=== PATIENT | female | born 1985 | race American Indian/Alaskan Native ===

== ENCOUNTER 2017-09-09 15:11 | Emergency (ER) | payer SELFPAY ==
[2017-09-09] MEDS ORDERED: ZOFRAN ODT PO ONE (19:07)
--- NOTE | 2017-09-09 19:19 | Emergency Department Report ---
ED Female HPI - General Chief complaint: Abdominal Pain Stated complaint: FLU LIKE SYMPTOMS Time Seen by Provider: 09/09/17 19:11 Source: patient Mode of arrival: Ambulatory Limitations: No Limitations - History of Present Illness Initial comments: 32F past medical history c/o slight dysuria and questioning whether or not she is . Patient denies chest pain shortness of breath nausea vomiting fever chills, rash. Patient has no abdominal pain now but states she has had some intermittent cramping. Patient denies any pleuritic chest pain or shortness of breath. No history of DVT or PEs. Denies any vaginal bleeding at this time. MD Complaint: vaginal discharge, dysuria Onset/Timin -: month(s) Location: suprapubic Severity: mild Improves with: none Worsens with: urination Are you Now?: Yes - Related Data Previous Rx's Medication Instructions Recorded Last Taken Type Acetaminophen [Acetaminophen TAB] 500 mg PO Q6HR PRN #30 tablet 09/09/17 Unknown Rx Nitrofurantoin Monohyd/M-Cryst 100 mg PO BID #14 capsule 09/09/17 Unknown Rx [Macrobid 100 mg Capsule] 21/Iron Fu/Folic Acid 1 each PO QDAY 9 Days #30 tablet 09/09/17 Unknown Rx [ Complete Caplet] Allergies Allergy/AdvReac Type Severity Reaction Status Date / Time No Known Allergies Allergy Unverified 09/09/17 15:30 ED Review of Systems ROS: Stated complaint: FLU LIKE SYMPTOMS Other details as noted in HPI Constitutional: denies: chills, fever Eyes: denies: eye pain, eye discharge, vision change ENT: denies: ear pain, throat pain Respiratory: denies: cough, shortness of breath, wheezing Cardiovascular: denies: chest pain, palpitations Endocrine: no symptoms reported Gastrointestinal: denies: abdominal pain, nausea, diarrhea Genitourinary: denies: urgency, dysuria, discharge Musculoskeletal: denies: back pain, joint swelling, arthralgia Skin: denies: rash, lesions Neurological: denies: headache, weakness, paresthesias Psychiatric: denies: anxiety, depression Hematological/Lymphatic: denies: easy bleeding, easy bruising ED Past Medical Hx - Past Medical History Previous Medical History?: No - Surgical History Past Surgical History?: Yes Additional Surgical History: x 2 - Social History Smoking Status: Current Every Day Smoker Substance Use Type: None - Medications Home Medications: Home Medications Medication Instructions Recorded Confirmed Last Taken Type Acetaminophen [Acetaminophen TAB] 500 mg PO Q6HR PRN #30 tablet 09/09/17 Unknown Rx Nitrofurantoin Monohyd/M-Cryst 100 mg PO BID #14 capsule 09/09/17 Unknown Rx [Macrobid 100 mg Capsule] 21/Iron Fu/Folic Acid 1 each PO QDAY 9 Days #30 tablet 09/09/17 Unknown Rx [ Complete Caplet] ED Physical Exam - General Limitations: No Limitations General appearance: alert, in no apparent distress - Head Head exam: Present: atraumatic, normocephalic - Eye Eye exam: Present: normal appearance, PERRL, EOMI - ENT ENT exam: Present: mucous membranes moist - Neck Neck exam: Present: normal inspection - Respiratory Respiratory exam: Present: normal lung sounds bilaterally. Absent: respiratory distress - Cardiovascular Cardiovascular Exam: Present: regular rate, normal rhythm. Absent: systolic murmur, diastolic murmur, rubs, gallop - GI/Abdominal GI/Abdominal exam: Present: tenderness (slight suprapubic tenderness on exam), normal bowel sounds - External exam: Present: normal external exam Speculum exam: Present: normal speculum exam Bi-manual exam: Present: normal bi-manual exam - Extremities Exam Extremities exam: Present: normal inspection - Back Exam Back exam: Present: normal inspection - Neurological Exam Neurological exam: Present: alert, oriented X3 - Psychiatric Psychiatric exam: Present: normal affect, normal mood - Skin Skin exam: Present: warm, dry, intact, normal color. Absent: rash ED Course Vital Signs 09/09/17 15:30 Temperature 99.0 F Pulse Rate 66 Respiratory 18 Rate Blood Pressure 114/47 O2 Sat by Pulse 97 Oximetry ED Medical Decision Making - Lab Data Result diagrams: 09/09/17 19:10 09/09/17 19:10 - Medical Decision Making A/P: , UTI symptoms 1-Shows IUP at 7 Weeks 2-will treat patient empirically with Macrobid as patient is symptomatic with cloudy looking urine. Urine culture sent 3- vitamins, Tylenol when necessary Critical care attestation.: If time is entered above; I have spent that time in minutes in the direct care of this critically ill patient, excluding procedure time. ED Disposition Clinical Impression: Qualifiers: Weeks of gestation: less than 8 weeks Qualified Code(s): Z3A.01 - Less than 8 weeks gestation of Urinary tract infection Qualifiers: Urinary tract infection type: acute cystitis Hematuria presence: without hematuria Qualified Code(s): N30.00 - Acute cystitis without hematuria Anemia Qualifiers: Anemia type: iron deficiency Iron deficiency anemia type: unspecified iron deficiency Qualified Code(s): D50.9 - Iron deficiency anemia, unspecified Disposition: TO HOME OR SELFCARE Is pt being admited?: No Does the pt Need Aspirin: No Condition: Stable Instructions: (ED), Urinary Tract Infection in Women (ED), Iron Rich Diet (ED), Iron Deficiency Anemia (ED), Anemia (ED) Prescriptions: Acetaminophen [Acetaminophen TAB] 500 mg PO Q6HR PRN #30 tablet PRN Reason: Pain Nitrofurantoin Monohyd/M-Cryst [Macrobid 100 mg Capsule] 100 mg PO BID #14 capsule 21/Iron Fu/Folic Acid [ Complete Caplet] 1 each PO QDAY 9 Days #30 tablet Referrals: PRIMARY CARE, [Primary Care Provider] - 3-5 Days [facility] [Provider Group] - 3-5 Days [facility] [Provider Group] - 3-5 Days [facility] [Provider Group] - 3-5 Days Forms: Work/School Release Form(ED) Time of Disposition: 21:26
[2017-09-09 19:36] LABS: Hematocrit 23.9 % (30.3-42.9); Hemoglobin 7.1 gm/dl (10.1-14.3); Mean Corpuscular HGB Conc 30 % (30-34); Platelet Count 269 K/mm3 (140-440); Red Blood Count 3.64 M/mm3 (3.65-5.03)
[2017-09-09 19:41] LABS: Alanine Aminotransferase 23 units/L (7-56); Albumin 4.1 g/dL (3.9-5); BUN/Creatinine Ratio 33; Blood Urea Nitrogen 13 mg/dL (7-17); Calcium 9.8 mg/dL (8.4-10.2); Hemolysis Index 1
[2017-09-09 19:42] LABS: HCG Qualitative,Urine Positive (Negative)
[2017-09-09 19:46] LABS: Bacteria,Urine 4+ /HPF (Negative); Bilirubin,Urine NEG (Negative); Blood,Urine NEG (Negative); Color,Urine Yellow (Yellow); Mucus,Urine FEW /HPF; Nitrite,Urine NEG (Negative); Protein,Urine <15 mg/dL mg/dL (Negative)
[2017-09-09 19:52] LABS: Mean Corpuscular Hemoglobin 19 pg (28-32); Mean Corpuscular Volume 66 fl (79-97); Red Cell Distribution Width 24.3 % (13.2-15.2)
--- NOTE | 2017-09-09 21:43 | Ultrasound Report ---
FINAL REPORT EXAM: US OB TRANSVAGINAL HISTORY: abd pain TECHNIQUE: Ultrasound obstetrical transvaginal PRIORS: None. FINDINGS: Uterus measures 10.8 x 6.9 x 6.8 centimeters There is intrauterine gestational sac There is pole present with crown-rump length of 1.23 centimeters corresponding to estimated gestational age of 7 weeks 3 days with estimated date of delivery of April 25, 2018. A yolk sac is identified cardiac activity is present with heart rate of 146 beats per minute. Right ovary 4.3 x 2.8 x 8.2 centimeters Left ovary is 3.2 x 1.7 x 1.9 centimeters. No abnormal adnexal mass identified No free fluid seen in the cul-de-sac IMPRESSION: Single live intrauterine gestation estimated at 7 weeks 3 days
[2017-09-09 21:48] VITALS: BP 118/64
--- NOTE | 2017-09-09 21:48 | Ultrasound Report ---
FINAL REPORT EXAM: US OB < = 14 WEEKS FETUS HISTORY: abd pain TECHNIQUE: Ultrasound obstetrical transabdominal PRIORS: None. FINDINGS: Uterus measures 10.8 x 6.9 x 6.8 centimeters There is intrauterine gestational sac There is pole present with crown-rump length of 1.23 centimeters corresponding to estimated gestational age of 7 weeks 3 days with estimated date of delivery of April 25, 2018. A yolk sac is identified cardiac activity is present with heart rate of 146 beats per minute. Right ovary 4.3 x 2.8 x 8.2 centimeters Left ovary is 3.2 x 1.7 x 1.9 centimeters. No abnormal adnexal mass identified No free fluid seen in the cul-de-sac IMPRESSION: Single live intrauterine gestation estimated at 7 weeks 3 days
[2017-09-09 21:57] LABS: Total Cells Counted 100
[2017-09-09 21:59] LABS: Hypochromasia 2+
[2017-09-09 22:00] LABS: Anisocytosis 2+; Giant Platelets Few; Large Platelets Few; Ovalocytes Few; Platelet Estimate Consistent w Auto; Poikilocytosis 1+
== END 2017-09-09 21:47 | disposition home or self-care (01) ==
LOC: ED 15:11
DX: O23.11 Infections of bladder in pregnancy, first trimester (principal); O99.011 Anemia complicating pregnancy, first trimester; O99.331 Smoking (tobacco) complicating pregnancy, first trimester; D50.9 Iron deficiency anemia, unspecified; Z3A.01 Less than 8 weeks gestation of pregnancy
CPT/HCPCS: 36415; 76801; 76817; 80053; 81001; 81025; 84702; 84703; 85007; 85025; Q0162